=== PATIENT | female | born 1995 | race African-American/Black ===

== ENCOUNTER 2016-03-18 23:20 | Emergency (ER) | payer MEDICAID ==
[2016-03-18] MEDS ORDERED: PREDNISONE 20 MG TABLET PO ONE (23:31)
[2016-03-18] MEDS ORDERED: IPRATROPIUM/ALBUTEROL 0.5-2.5 MG/3 ML AMPUL NEB ONE (23:31)
[2016-03-18] MEDS ORDERED: ALBUTEROL SULFATE 0.083% NEB 2.5 MG/3 ML AMPUL NEB SCH (23:46)
--- NOTE | 2016-03-19 00:07 | ER Document Report ---
ED Respiratory Problem - General Chief Complaint: Asthma Exacerbation Stated Complaint: COUGH Time seen by provider: 00:04 Mode of Arrival: Ambulatory Information source: Patient TRAVEL OUTSIDE OF THE [place] IN LAST 30 DAYS: No - HPI Patient complains to provider of: Cough, Short of breath Onset: Other - 2-3 days Duration: Worse/persistent Quality of pain: No pain Severity: Mild Context: Hx asthma Short of Breath: Mild Chest pain/discomfort: Tightness Cough: Nonproductive Associated symptoms: Fever - Subjective Similar symptoms previously: Yes Recently seen / treated by doctor: No Notes: Patient is a 20-year-old female with a history of asthma who presents to the emergency room complaining of nonproductive cough with subjective fever and difficulty breathing 2-3 days, states she ran out of her asthma medication at home, denies nausea vomiting or diarrhea, positive sick contacts with son with upper respiratory symptoms recently - Related Data Allergies/Adverse Reactions: No Known Allergies Allergy (Verified 12/29/15 18:52) Past Medical History - General Information source: Patient - Social History Smoking Status: Never Smoker Chew tobacco use (# tins/day): No Frequency of alcohol use: Occasional Drug Abuse: None Family History: Reviewed & Not Pertinent Patient has suicidal ideation: No Patient has homicidal ideation: No Pulmonary Medical History: Reports: Hx Asthma Renal/ Medical History: Denies: Hx Peritoneal Dialysis - Immunizations Hx Diphtheria, Pertussis, Tetanus Vaccination: Yes Review of Systems - Review of Systems Constitutional: Fever - Subjective EENT: No symptoms reported Cardiovascular: No symptoms reported Respiratory: See HPI Gastrointestinal: No symptoms reported Genitourinary: No symptoms reported Female Genitourinary: No symptoms reported Musculoskeletal: No symptoms reported Skin: No symptoms reported Hematologic/Lymphatic: No symptoms reported Neurological/Psychological: No symptoms reported -: Yes All other systems reviewed and negative Physical Exam - Vital signs Vitals: Temp Pulse Resp BP Pulse Ox 98.1 F 119 H 22 H 108/72 98 03/18/16 23:27 03/18/16 23:27 03/18/16 23:27 03/18/16 23:27 03/18/16 23:27 Interpretation: Normal - General General appearance: Appears well, Alert - HEENT Head: Normocephalic, Atraumatic Eyes: Normal Conjunctiva: Normal Extraocular movements intact: Yes Eyelashes: Normal Pupils: PERRL Mucous membranes: Normal Pharynx: Normal Neck: Normal - Respiratory Respiratory status: No respiratory distress Chest status: Nontender Breath sounds: Normal Chest palpation: Normal - Cardiovascular Rhythm: Regular Heart sounds: Normal auscultation Murmur: No - Abdominal Inspection: Normal Distension: No distension Bowel sounds: Normal Tenderness: Nontender Organomegaly: No organomegaly - Back Back: Normal, Nontender - Extremities General upper extremity: Normal inspection, Nontender, Normal color, Normal ROM , Normal temperature General lower extremity: Normal inspection, Nontender, Normal color, Normal ROM , Normal temperature, Normal weight bearing. No: Bernabe's sign - Neurological Neuro grossly intact: Yes Cognition: Normal Orientation: AAOx4 [place] Coma Scale Eye Opening: Spontaneous Gregory Coma Scale Verbal: Oriented Gregory Coma Scale Motor: Obeys Commands [place] Coma Scale Total: 15 Speech: Normal Motor strength normal: LUE, RUE, LLE, RLE Sensory: Normal - Psychological Associated symptoms: Normal affect, Normal mood - Skin Skin Temperature: Warm Skin Moisture: Dry Skin Color: Normal Course - Re-evaluation Re-evalutation: 03/19/16 00:05 Patient reports feeling much better at time of my initial evaluation, she received nebulizer treatments and steroids prior to my evaluation, lungs are clear to auscultation, she is in no acute distress, symptoms consistent with viral upper respiratory illness, likely causing acute asthma exacerbation, she will be discharged with an albuterol inhaler as well as a prescription for same and prednisone, advised to follow-up with her primary care provider in 2-3 days or return if symptoms worsen, patient acknowledges understanding and agreement with this plan - Vital Signs Vital signs: Temp Pulse Resp BP Pulse Ox 98.1 F 119 H 22 H 108/72 98 03/18/16 23:27 03/18/16 23:27 03/18/16 23:27 03/18/16 23:27 03/18/16 23:27 Discharge - Discharge Clinical Impression: Viral upper respiratory illness Acute asthma exacerbation Qualifiers: Asthma severity: mild intermittent Qualified Code(s): J45.21 - Mild intermittent asthma with (acute) exacerbation Disposition: HOME, SELF-CARE Instructions: Upper Respiratory Illness ([facility]), Inhaled Bronchodilators ([facility]), Asthma ([facility]) Additional Instructions: Follow up with your primary care provider in one to 2 days. Return to the emergency room immediately if symptoms worsen or any additional concerns. Prescriptions: Albuterol Sulfate [Proair HFA Inhalation Aerosol 8.5 gm MDI] 1 puff IH Q4 PRN # 1 mdi PRN Reason: Prednisone 40 mg PO DAILY #8 tablet
[2016-03-19 01:06] VITALS: BP 124/73
[2016-03-19] MEDS ORDERED: ALBUTEROL SULFATE HFA (90 MCG/PUFF) 8 GM MDI (1 MDI/ER DISP) IH SCH (02:00)
== END 2016-03-19 01:08 | disposition home or self-care (01) ==
LOC: ER 23:20
DX: J06.9 Acute upper respiratory infection, unspecified (principal); J45.21 Mild intermittent asthma with (acute) exacerbation; R05 Cough; R06.02 Shortness of breath; R50.9 Fever, unspecified
CPT/HCPCS: 94640; 99283; J7512; J3490; J7620

== ENCOUNTER 2017-05-29 22:48 | Emergency (ER) | payer MEDICAID ==
[2017-05-29 22:57] VITALS: BP 129/84
== END 2017-05-30 01:30 | disposition left against medical advice (07) ==
LOC: ER 22:48
DX: Z53.21 Procedure and treatment not carried out due to patient leaving prior to being seen by health care provider (principal)

== ENCOUNTER → 2017-11-15 | Outpatient (CLI) | payer MEDICAID | LOC: OD 14:43 | PROVIDERS: ATTEND Nurse Practitioner Acute Care | DX: R30.0 Dysuria (principal) | CPT/HCPCS: 87086; 87088; 87186 ==

== ENCOUNTER 2019-02-02 13:32 | Emergency (ER) | payer SELFPAY ==
--- NOTE | 2019-02-02 14:09 | ER Document Report ---
ED Medical Screen (RME) - General Chief Complaint: Vaginal Pain Stated Complaint: VAGINAL ISSUE/SPOTTING Time Seen by Provider: 02/02/19 14:04 Primary Care Provider: SHY MUNOZ NP [Primary Care Provider] - Follow up as needed TRAVEL OUTSIDE OF THE [place] IN LAST 30 DAYS: No - HPI Notes: 02/02/19 14:08 Patient is a 23-year-old female G4, P3 who is possibly an early presents for evaluation after having 3+ home test. Patient states that she is on a hormonal IUD and is not supposed to be getting so she came here for evaluation as she was spotting earlier today. She has not had any pain. Denies drug allergies. Pt O+ blood type by chart history on record. I have treated and performed a rapid initial assessment of this patient. A comprehensive ED assessment and evaluation of the patient, analysis of test results and completion of medical decision making process will be conducted by additional ED providers. PHYSICAL EXAMINATION: GENERAL: Well-appearing, well-nourished and in no acute distress. A&Ox4. Answers questions appropriately. - Related Data Allergies/Adverse Reactions: No Known Allergies Allergy (Verified 02/02/19 14:03) Past Medical History Pulmonary Medical History: Reports: Hx Asthma Renal/ Medical History: Denies: Hx Peritoneal Dialysis - Immunizations Hx Diphtheria, Pertussis, Tetanus Vaccination: Yes Physical Exam - Vital signs Vitals: Temp Pulse Resp BP Pulse Ox 97.9 F 71 18 110/68 97 02/02/19 13:55 02/02/19 13:55 02/02/19 13:55 02/02/19 13:55 02/02/19 13:55 Course - Vital Signs Vital signs: Temp Pulse Resp BP Pulse Ox 97.9 F 71 18 110/68 97 02/02/19 13:55 02/02/19 13:55 02/02/19 13:55 02/02/19 13:55 02/02/19 13:55 Doctor's Discharge - Discharge Referrals: SHY MUNOZ NP [Primary Care Provider] - Follow up as needed
[2019-02-02 15:10] LABS: ABSOLUTE EOSINOPHILS # (AUTO) 0.2 10^3/uL (0.0-0.6); ABSOLUTE LYMPHOCYTES (AUTO) 2.9 10^3/uL (0.5-4.7); ABSOLUTE MONOCYTES (AUTO) 0.5 10^3/uL (0.1-1.4); ABSOLUTE NEUT (AUTO) 2.8 10^3/uL (1.7-8.2); BASOPHILS % (AUTO) 0.4 % (0-2); EOSINOPHILS % (AUTO) 3.6 % (0-6); HEMATOCRIT 39.9 % (36.0-47.0); HEMOGLOBIN 13.5 g/dL (12.0-15.5); LYMPHOCYTES % (AUTO) 44.6 % (13-45); MEAN CORPUSCULAR HEMOGLOBIN 29.7 pg (27.0-33.4); MEAN CORPUSCULAR HGB CONC 33.8 g/dL (32.0-36.0); MEAN CORPUSCULAR VOLUME 88 fl (80-97); MONOCYTES % (AUTO) 7.6 % (3-13); PLATELET COUNT 320 10^3/uL (150-450); RED BLOOD COUNT 4.54 10^6/uL (3.72-5.28); RED CELL DISTRIBUTION WIDTH 13.5 % (11.5-14.0); SEGMENTED NEUTROPHILS % (AUTO) 43.8 % (42-78); TOTAL CELLS COUNTED % (AUTO) 100 %; WHITE BLOOD COUNT 6.5 10^3/uL (4.0-10.5)
--- NOTE | 2019-02-02 15:14 | ER Document Report ---
ED General - General Chief Complaint: Pelvic Problem Stated Complaint: VAGINAL ISSUE/SPOTTING Time Seen by Provider: 02/02/19 14:04 Primary Care Provider: SHY MUNOZ, ROAD MARKER [NURSE PRACTITIONER] - Follow up as needed Notes: HPI: 23-year-old female who started to have some vaginal spotting starting last night and some suprapubic cramping. No fevers or vomiting. No vaginal discharge or dysuria. Patient has had 3 home tests over the last 48 hours. This would make the patient a -0-0-3. She had an IUD placed around 2 years ago and has yet to have it removed. She denies any aggravating relievin g factors. She denies any radiation to the pain. ROS: See HPI All other review of systems reviewed and otherwise negative Reviewed vital signs and nursing note as charted by RN. PHYSICAL EXAM: CONSTITUTIONAL: Alert and oriented and responds appropriately to questions. Well-appearing; well-nourished HEAD: Normocephalic; atraumatic EYES: Sclerae is not pale CARD: Regular rate and rhythm; no murmurs; symmetric distal pulses RESP: Normal chest excursion without splinting or tachypnea; breath sounds clear and equal bilaterally; no wheezes, no rhonchi, no rales ABD/GI: Normal bowel sounds; non-distended; soft, non-tender currently to deep palpation of all 4 quadrants of the abdomen BACK: The back appears normal and is non-tender to palpation EXT: Normal ROM in all joints; non-tender to palpation; no edema SKIN: No acute lesions noted NEURO: CN 2-12 intact; 5/5 bilateral upper and lower extremity strength with sensation intact to light touch PSYCH: The patient's mood and manner are appropriate. Grooming and personal hygiene are appropriate. TRAVEL OUTSIDE OF THE [place] IN LAST 30 DAYS: No - Related Data Allergies/Adverse Reactions: No Known Allergies Allergy (Verified 02/02/19 14:03) Past Medical History - Social History Smoking Status: Never Smoker Chew tobacco use (# tins/day): No Frequency of alcohol use: Occasional Drug Abuse: None Family History: Reviewed & Not Pertinent Patient has suicidal ideation: No Patient has homicidal ideation: No Pulmonary Medical History: Reports: Hx Asthma Renal/ Medical History: Denies: Hx Peritoneal Dialysis - Immunizations Hx Diphtheria, Pertussis, Tetanus Vaccination: Yes Physical Exam - Vital signs Vitals: Temp Pulse Resp BP Pulse Ox 97.9 F 71 18 110/68 97 02/02/19 13:55 02/02/19 13:55 02/02/19 13:55 02/02/19 13:55 02/02/19 13:55 Course - Re-evaluation Re-evalutation: 02/02/19 15:08 Given the above history and physical examination, there is concern about the possibility of an ectopic . We will order quantitative hCG as well as a transvaginal ultrasound and perform a pelvic examination. 02/02/19 16:08 Quantitative hCG is negative. 02/02/19 17:25 Hemoglobin as recorded. Pelvic examination shows no obvious external or internal lesions. Minimal blood in the vaginal vault. No adnexal tenderness or cervical motion tenderness. 02/02/19 17:58 Quantitative hCG is recorded. Ultrasound as recorded. Patient denies any pain at this time. Stable hemoglobin. No urinary tract infection. Given the above history and physical, patient will be [facility] and follow-up with the primary care provider. - Vital Signs Vital signs: Temp Pulse Resp BP Pulse Ox 97.9 F 71 18 110/68 97 02/02/19 13:55 02/02/19 13:55 02/02/19 13:55 02/02/19 13:55 02/02/19 13:55 - Laboratory Result Diagrams: 02/02/19 14:22 Discharge - Discharge Clinical Impression: Dysfunctional uterine bleeding, Pelvic pain Condition: Good Disposition: HOME, SELF-CARE Additional Instructions: Come back immediately for any increased pain, fevers, vomiting, lightheadedness, bleeding, or any other acute problems. Please make sure that you follow-up with your primary care physician or the health department as we have discussed. Referrals: SHY MUNOZ NP [NURSE PRACTITIONER] - Follow up as needed
[2019-02-02 15:19] LABS: APPEARANCE,URINE CLEAR; BILIRUBIN,URINE NEGATIVE (NEGATIVE); COLOR,URINE YELLOW; GLUCOSE, URINE NEGATIVE (NEGATIVE); KETONES,URINE NEGATIVE (NEGATIVE); PROTEIN,URINE NEGATIVE (NEGATIVE); URINE SPECIFIC GRAVITY 1.024; UROBILINOGEN,URINE NEGATIVE mg/dL (<2.0)
[2019-02-02 17:32] LABS: BACTERIA (WET MOUNT) 3+ BACTERIA SEEN; EPITHELIALS (WET MOUNT) 3+ EPITHELIALS SEEN; RBCS (WET MOUNT) 3+ RBCS SEEN; T.VAGINALIS (WET MOUNT) NO TRICHOMONAS SEEN; WBCS (WET MOUNT) 1+ WBCS SEEN; YEAST (WET MOUNT) NO YEAST SEEN
--- NOTE | 2019-02-02 17:39 | RADIOLOGY REPORT (SQ) ---
EXAM DESCRIPTION: U/S NON OB PEL TV W/DOPPLER COMPLETED DATE/TIME: 02/02/2019 5:25 pm REASON FOR STUDY: possible , spotting, wait for HCG prior COMPARISON: None. TECHNIQUE: Dynamic and static grayscale images acquired of the pelvis via transvaginal approach and recorded on PACS. Additional selected color Doppler and spectral images recorded. LIMITATIONS: None. FINDINGS: UTERUS: Contour normal. No mass. ENDOMETRIAL STRIPE: No focal or generalized thickening. No masses. Intrauterine device appropriately positioned within the endometrial cavity. CERVIX: No nabothian cysts. RIGHT OVARY AND DOPPLER: Normal size. No worrisome masses. Normal arterial vascular flow without evid ence for torsion. LEFT OVARY AND DOPPLER: Mildly enlarged. 1.7 cm thick-walled cyst demonstrating some peripheral vasc ularity and containing some low-level internal echoes. Normal arterial vascular flow without evidence for torsion. FREE FLUID: None noted. OTHER: No other significant finding. MEASUREMENTS: UTERUS: 11 x 6.6 x 5 cm ENDOMETRIAL STRIPE: 4 mm RIGHT OVARY: 3.7 x 1.3 x 1.4 cm LEFT OVARY: 2.9 x 2 x 1.9 cm IMPRESSION: Probable 1.7 cm left ovarian hemorrhagic corpus luteal cyst. No free fluid/hemoperitone um. Appropriately positioned intrauterine device. TECHNICAL DOCUMENTATION: JOB ID: [id number] [employer]- All Rights Reserved Rev Reading location - IP/workstation name: [email or web address]
[2019-02-02 18:25] VITALS: BP 114/67
[2019-02-02 19:10] LABS: CHLAM PCR DETECTED (NOT DETECT)
== END 2019-02-02 18:25 | disposition home or self-care (01) ==
LOC: ER 13:32
DX: N93.8 Other specified abnormal uterine and vaginal bleeding (principal); R10.2 Pelvic and perineal pain
CPT/HCPCS: 36415; 76830; 81001; 84702; 85025; 87210; 87491; 87591; 93976; 99284